=== PATIENT | female | born 1965 | race Caucasian/White ===

== ENCOUNTER 2017-01-29 05:41 | Inpatient (IN) | payer BC ==
[2017-01-29] VITALS (12 sets, daily range): BP systolic 92–128; BP diastolic 54–75
[~2017-01-29] VITALS: Ht 158 cm; Wt 77.1 kg
[~2017-01-29 05:41] MED LIST: cefOXitin Sod 2 GM in D5W 110 ML IVPB ONE
[2017-01-29] MEDS ORDERED: LR 1000ml 1,000 ML IVLG SCH (06:24)
--- NOTE | 2017-01-29 06:25 | Anethesia Preoperative Eval ---
Anesthesia Pre-op PMH/ROS General Date of Evaluation: Jan 29, 2017 Time of Evaluation: 07:06 Anesthesiologist: Torres ASA Score: ASA 2 Mallampati Score Class I : Soft palate, uvula, fauces, pillars visible Class II: Soft palate, uvula, fauces visible Class III: Soft palate, base of uvula visible Class IV: Only hard plate visible Mallampati Classification: Class I Surgeon: Angelica Diagnosis: Abdominal Pain Surgical Procedure: Total Abdominal Hysterectomy Anesthesia History: none Family History: no anesthesia problems Allergies: Coded Allergies: No Known Allergies (Unverified , 01/28/17) Medications: see eMAR Past Medical History PSxH Narrative: IUD Removal, X6 Anesthesia Pre-op Phys. Exam Physician Exam Vital Signs Date Time Temp Pulse Resp B/P (MAP) Pulse Ox O2 Delivery O2 Flow Rate FiO2 01/29/17 06:33 98.5 67 20 118/75 98 Room Air Constitutional: NAD Neurologic: CN 2-12 intact Cardiovascular: RRR Respiratory: CTA Gastrointestinal: S/NT/ND Airway Exam Mallampati Score: Class I MO: full ROM: full Teeth: intact Anesthesia Pre-op A/P Labs Urine Test Test 01/29/17 05:55 Urine HCG, Qualitative Negative Risk Assessment & Plan Assessment: ASA 2 Plan: GA, BIS, GlideScope Status Change Before Surgery: No Pre-Antibiotics Dru Grams Ancef IV Given Within 1 Hr of Incision: Yes Time Given: 07:26 You Macdonald MD Jan 29, 2017 06:25
[2017-01-29] MEDS ORDERED: Morphine Sulfate PF 10 ML ONE (06:29)
[2017-01-29] MEDS ORDERED: Ketorolac 30mg Inj IV PRN ×2 (06:30)
[2017-01-29] MEDS ORDERED: Atropine Inj 1mg/10ml Syr IV PRN (06:30)
[2017-01-29] MEDS ORDERED: oxyCODONE HCL/Acetaminophen 5/325mg ORAL PRN (06:30)
[2017-01-29] MEDS ORDERED: Norco 5mg/325mg tab ORAL PRN ×2 (06:30→13:00)
[2017-01-29] MEDS ORDERED: fentaNYL 100 mcg/2 mL IV PRN (06:30)
[2017-01-29] MEDS ORDERED: Acetaminophen (Non formulary) 100 ML IV ONE (06:30)
[2017-01-29] MEDS ORDERED: Norco 7.5mg/325mg tab ORAL PRN (06:30)
[2017-01-29] MEDS ORDERED: Midazolam 2mg/2ml Inj IVP PRN (06:30)
[2017-01-29] MEDS ORDERED: Metoclopramide 10mg/2ml Inj IVP PRN ×2 (06:30→12:30)
[2017-01-29] MEDS ORDERED: LORazepam Inj 2mg/ml 1ml IV PRN (06:30)
[2017-01-29] MEDS ORDERED: Labetalol 5mg/ml 20ml vial IV PRN (06:30)
[2017-01-29] MEDS ORDERED: DiphenhydrAMINE 50mg/ml Inj IVP PRN (06:30)
[2017-01-29] MEDS ORDERED: Hydromorphone 0.5mg/0.5ml inj IVP PRN (06:30)
[2017-01-29] MEDS ORDERED: NKM (06:31)
[2017-01-29] MEDS ORDERED: Ropivacaine 5mg/ml Vial 30ml INJ ONE (06:57)
[2017-01-29] MEDS ORDERED: Surgicel 4in x 8in TOPIC ONE (06:57)
[2017-01-29] MEDS ORDERED: LR 1000ml ONE (07:00)
[2017-01-29] MEDS ORDERED: Lidocaine 1% Plain 30 ml INJ ONE (07:00)
[2017-01-29] MEDS ORDERED: Propofol 1,000mg/ 100ml btl IV ONE (07:00)
[2017-01-29] MEDS ORDERED: Glycopyrrolate 0.2mg/ml 1ml Vial ONE (07:00)
[2017-01-29] MEDS ORDERED: fentaNYL 100 mcg/2 mL IV ONE (07:00)
[2017-01-29] MEDS ORDERED: Lidocaine 1% MPF 10mg/ml 5ml ONE (07:00)
[2017-01-29] MEDS ORDERED: NS Irrig 1000ml ONE (07:00)
[2017-01-29] MEDS ORDERED: Zemuron 50mg/5ml Inj IV ONE (07:00)
[2017-01-29] MEDS ORDERED: Sterile Water Irrig 1000ml IRRIG ONE (07:00)
[2017-01-29] MEDS ORDERED: Neostigmine 1mg/ml 10ml Inj ONE (07:00)
--- NOTE | 2017-01-29 08:03 | Immediate Post-Op Evaluation ---
Immediate Post-Op Evalulation Immediate Post-Op Evalulation Procedure: Total Abdominal Hysterectomy Date of Evaluation: Jan 29, 2017 Time of Evaluation: 10:28 IV Fluids: 1000 LR Blood Products: 0 Estimated Blood Loss: 75 Urinary Output: 400 Blood Pressure Systolic: 128 Blood Pressure Diastolic: 87 Pulse Rate: 85 Respiratory Rate: 16 O2 Sat by Pulse Oximetry: 99 Temperature (Fahrenheit): 99.1 Pain Score (1-10): 3 Nausea: No Vomiting: No Complications 0 Patient Status: awake, reacts, patent, extubated, none Hydration Status: adequate Dru Grams Ancef IV Given Within 1 Hr of Incision: Yes Time Given: 07:26 You Macdonald MD Jan 29, 2017 08:03
--- NOTE | 2017-01-29 08:04 | 48 Hour Post Anesthesia Eval ---
Post Anesthesia Evaluation Procedure: Total Abdominal Hysterectomy Date of Evaluation: Jan 29, 2017 Time of Evaluation: 12:46 Blood Pressure Systolic: 131 0: 82 Pulse Rate: 78 Respiratory Rate: 18 Temperature (Fahrenheit): 98.6 O2 Sat by Pulse Oximetry: 100 Airway: patent Nausea: No Vomiting: No Pain Intensity: 2 Hydration Status: adequate Cardiopulmonary Status: Stable Mental Status/LOC: patient returned to baseline Follow-up Care/Observations: 0 Post-Anesthesia Complications: 0 Follow-up care needed: N/A You Macdonald MD Jan 29, 2017 08:04
--- NOTE | 2017-01-29 10:19 | Brief Operative Note ---
Immediate Post Operative Note Operative Note Chief Complaint: Uterine fibroids, bilateral ovarian cysts Pre-op Diagnosis: Uterine fibroids, bilateral ovarian cyssts Procedure: Total abdominal hysterectomy, bilateral salpingo-oophorectomy Post-op Diagnosis: Uterine fibroids, bilateral ovarian cysts (left endometrioma, right simple cyst) Post-op Diagnosis: same as pre-op Findings: consistent w/pre-op dx studies Surgeon: Santos Dominguez MD Administrative Accountant: Mary Driver MD Anesthesiologist: You Macdonald MD Anesthesia: general Specimen: yes Complications: none Condition: stable Fluids: 1000cc crystalloid Estimated Blood Loss: volume - 75cc Drains: other - nguyen catheter Packing: None Implant(s) used?: No Mary Driver M.D. Jan 29, 2017 10:19
[2017-01-29] MEDS ORDERED: D5 1/2NS 1,000 ML IV SCH (10:30)
--- NOTE | 2017-01-29 10:38 | Pre-Procedure Note/Attestation ---
Pre-Procedure Note/Attestation Complete Prior to Procedure Planned Procedure: bilateral Procedure Narrative: Total abdominal hysterectomy, bilateral salpingo-oophorectomy Indications for Procedure Pre-Operative Diagnosis: Uterine fibroids, bilateral ovarian cysts Attestation I attest that I discussed the nature of the procedure; its benefits; risks and complications; and alternatives (and the risks and benefits of such alternatives ), prior to the procedure, with the patient (or the patient's legal traffic workforce representative). I attest that, if there was a reasonable possibility of needing a blood transfusion, the patient (or the patient's legal traffic workforce representative) was given the [facility] standardized written summary, pursuant to the Noah Pardeep Blood Safety Act ([place] Health and Safety Code # 1645, as amended). I attest that I re-evaluated the patient just prior to the surgery and that there has been no change in the patient's H&P, except as documented below: Mary Beltrán M.D. Jan 29, 2017 10:38
[2017-01-29] MEDS ORDERED: Norco 10mg/325mg tab ORAL PRN (12:30)
[2017-01-29] MEDS ORDERED: Milk of Magnesia 30ml Ud ORAL PRN (12:30)
[2017-01-29] MEDS: Ketorolac 30mg Inj IV SCH ×2 (13:04→18:56)
[2017-01-29] MEDS: D5 1/2NS w/KCl 20mEq 1,000 ML IV SCH ×2 (14:02→21:59)
[2017-01-29] MEDS: Docusate 100mg cap ORAL SCH (17:52)
[2017-01-30] VITALS: BP 112/56
[2017-01-30] MEDS: Ketorolac 30mg Inj IV SCH ×4 (01:16→18:57)
[2017-01-30 04:00] VITALS: BP 105/54
[2017-01-30] MEDS: D5 1/2NS w/KCl 20mEq 1,000 ML IV SCH ×2 (05:06→13:17)
[2017-01-30 08:00] VITALS: BP 109/57
[2017-01-30] MEDS: Docusate 100mg cap ORAL SCH ×2 (08:13→18:57)
--- NOTE | 2017-01-30 10:21 | General Progress Note ---
Progress Note Progress Note POD#1 s/p YANY, BSO - for very large symptomatic uterine fibroids Afebrile, Normotensive Has not ambulated yet. Pain is well controlled with Spinal Duramorph Incision dry, clean Dressing removed, steri-strips are in-place Ambulate D/C nguyen Cont Toradol Advance Diet ABDIRASHID SHAH Jan 30, 2017 10:21
[2017-01-30 12:00] VITALS: BP 103/59
[2017-01-30 16:00] VITALS: BP 111/67
[2017-01-30 20:00] VITALS: BP 106/63
[2017-01-31] MEDS: Ketorolac 30mg Inj IV SCH ×3 (01:00→12:54)
[2017-01-31 08:00] VITALS: BP 112/69
[2017-01-31] MEDS: Docusate 100mg cap ORAL SCH (09:00)
[2017-01-31 12:00] VITALS: BP 112/69
--- NOTE | 2017-02-04 14:38 | Discharge Summary ---
Discharge Summary Hospital Course Date of Admission Jan 29, 2017 at 05:41 Date of Discharge Jan 31, 2017 at 16:12 Admitting Diagnosis HPI Reanna Vazquez is a 51 year old female who was admitted on Jan 29, 2017 at 05:41 for Uterine Fibrods,Ovarian Cyst Hospital Course [id number] Discharge Discharge Disposition Patient was discharged to Home (01) Discharge Diagnoses: Nuris Degroot NP Feb 04, 2017 14:38
--- NOTE | 2017-02-04 23:45 | Discharge Summary 2 SIG ---
DATE OF ADMISSION: 01/29/2017 DATE OF DISCHARGE: 01/31/2017 BRIEF HOSPITAL COURSE: The patient is a 51-year-old female, who has been diagnosed with uterine fibroids and bilateral ovarian cysts. She has history of anemia, uterine fibroids, uterine bleed, status post tonsillectomy, and vitamin D deficiency. She was admitted on 01/29/2017 and underwent total abdominal hysterectomy, bilateral salpingo-oophorectomy on 01/29/[address] Driver. Postoperatively, the patient was given pain management. Pain was well controlled with spinal Duramorph. Incision was dry and clean. Dressing was removed. Steri-Strips are in place. She was encouraged ambulation and Davis catheter was discontinued. Diet was advanced. She was encouraged the use of incentive spirometer. She was tolerating regular diet and was eventually discharged home. FINAL DIAGNOSES: 1. Large symptomatic uterine fibroid. 2. Status post total abdominal hysterectomy, bilateral salpingo-oophorectomy. DISPOSITION: The patient was discharged home. DISCHARGE INSTRUCTIONS: Follow up with Gynecology in a week. Santos Dominguez M.D. I have been assigned to dictate discharge summary on this account and I was not involved in the patient's management. Nuris Degroot N.P. DR: Beto JOB#: [id number] CC:
--- NOTE | 2017-02-11 00:15 | Operative Note - Dictated ---
PREOPERATIVE DIAGNOSES: 1. Uterine fibroids. 2. Bilateral ovarian cyst. 3. Persistent uterine bleeding. POSTOPERATIVE DIAGNOSES: 1. Uterine fibroids. 2. Bilateral ovarian cyst. 3. Persistent uterine bleeding. PROCEDURE PERFORMED: Total abdominal hysterectomy and bilateral salpingo-oophorectomy. SURGEON: Santos Dominguez M.D. RESIDENTIAL REAL ESTATE ASSISTANT: Mary Driver M.D. ANESTHESIOLOGIST: You Macdonald M.D. ANESTHESIA: General endotracheal. APPROXIMATE BLOOD LOSS: 75 mL. PROCEDURE IN DETAIL: After all the appropriate consents were signed, the patient was brought to the operating room and placed on table in supine position. General endotracheal anesthesia was induced without complication. The patient was then placed in a dorsal lithotomy position. Perineum, vagina and abdomen were prepped and draped in usual fashion for the procedure. The patient was then examined under anesthesia. Uterus appeared to be severely enlarged. However, the uterus was mobile. The procedure was then continued with a Pfannenstiel incision. The incision was carried through subcutaneous tissue. The fascia was nicked and extended bilaterally to expose the rectus muscle. Rectus muscle was parted in the midline and the peritoneum was visualized and entered sharply. The peritoneal cavity revealed a very large uterus, which could not be exteriorized due to its size through the incision. At this time, it was decided to proceed with removing the fibroids in order to visualize the uterus better for the procedure. At this time, the uterus was injected with vasopressin solution and multiple fibroids were removed starting with the fundal area of the uterus. Once the fibroids were removed, the uterus was now brought into the incision and was able to be exteriorized to proceed with the surgery. O'Abebe-Johnson retractor was placed and the uterine pedicles were visualized. Both ovaries could be identified. One of the ovaries was an endometriosis cyst and endometrioma was also adherent to the pelvic sidewall, the opposite side had a simple cyst, which was visualized and palpated. There were some adhesions in the posterior cul-de-sac, which were manually dissected to expose the areas of surgery. At this time, the right round ligament was clamped, cut, and suture ligated. The same was performed on the left side. The bladder flap was developed and posterior leaf of the broad ligament was entered on the left side. The infundibulopelvic ligament was then clamped, cut, and suture ligated to expose the ovarian vessels. The same procedure was performed on the right side and the uterine vessels were exposed bilaterally. At this time, the uterus was skeletonized bilaterally and clamped and cut and suture ligated bilaterally. At this time, the cardinal ligaments were sequentially clamped and cut to expose the vaginal cuff and the uterosacral ligaments. Uterosacrals were now clamped, cut, and suture ligated and the cervix was fully using Foley scissors. Once the uterus was removed from the field, the vaginal cuff was fully visualized. The cuff was sutured in a running interlocking fashion. At this time, all the pedicles were evaluated and found to be within normal limits. There was no bleeding. Both the ureters were visualized and found to be within normal limits and mobile. At this time, the pelvis was irrigated and debris and blood were suctioned. All the instruments were removed and the laps were removed from the abdomen. The lap count was correct and the instrument count was correct. At this time, the peritoneum was closed in a running suture. The muscle was approximated in the midline. The fascia was closed with 0 Vicryl bilaterally. The subcutaneous tissue was approximated using 3-0 plain sutures and the skin was closed. At this time, the patient was placed in the supine position and awakened from general anesthesia, a dressing was placed, and she was transferred to the recovery room in excellent condition. Santos Dominguez M.D. DR: JACKY JOB#: [id number] CC:
== END 2017-01-31 16:12 | disposition home or self-care (01) | DRG 743 ==
LOC: SDSOVERFLO 05:41 → 3E 12:00
PROC: 0UT20ZZ Resection of Bilateral Ovaries, Open Approach (ICD-10-PCS; principal; 2017-01-29 07:30)
PROC: 0UT90ZZ Resection of Uterus, Open Approach (ICD-10-PCS; principal; 2017-01-29 07:30)
PROC: 0UT70ZZ Resection of Bilateral Fallopian Tubes, Open Approach (ICD-10-PCS; principal; 2017-01-29 07:30)
DX: D25.9 Leiomyoma of uterus, unspecified (principal); E55.9 Vitamin D deficiency, unspecified; N83.201 Unspecified ovarian cyst, right side; N83.202 Unspecified ovarian cyst, left side
CPT/HCPCS: 36415; 81025; 86850; 86900; 86901; 87081; 94003; 94150; J2405; J2710; J2765